=== PATIENT | female | born 1950 | race Hispanic/Latino ===

== ENCOUNTER 2021-09-18 13:59 | Inpatient (IN) | payer MEDICARE, MEDICAID ==
[2021-09-18] MEDS ORDERED: Vancomycin 1 GM/200 ML BAG ONE (14:18)
[2021-09-18] MEDS ORDERED: Cefepime 2 GM VIAL ONE (14:18)
[2021-09-18 14:30] LABS: Hemoglobin 15.9 g/dL (12.0-16.0); Mean Corpuscular HGB CONC 33.4 g/dL (32.0-36.0); Mean Corpuscular Hemoglobin 33.7 pg (27.0-31.0); Mean Platelet Volume 7.2 fL (7.4-10.4); Platelet Count 279 thou/uL (130-400); RBC Distribution Width 13.8 % (11.5-14.5); Red Blood Cell (RBC) Count 4.71 mill/uL (4.20-5.40); White Blood Cell (WBC) Count 11.8 thou/uL (4.8-10.8)
[2021-09-18 14:49] LABS: Band 23 % (5-11); Lymphocytes 11 % (21-51); MDiff Complete? YES; Monocytes 2 % (0-10); Neutrophil 63 % (42-75); Platelet Morphology Comment Appears Adequate; RBC Morphology Normal; Reactive Lymphocytes 1 % (0-10)
[2021-09-18 14:58] LABS: ALT (SGPT) 23 U/L (8-55); AST (SGOT) 28 U/L (5-34); Albumin 3.2 g/dL (3.4-4.8); Alkaline Phosphatase 165 U/L (40-110); Anion Gap 18 mmol/L (10-20); BUN (Urea Nitrogen) 24 mg/dL (9.8-20.1); Bilirubin, Total 0.5 mg/dL (0.2-1.2); Calc. Creatinine Clearance 0 mL/min (70-130); Calcium 9.5 mg/dL (7.8-10.44); Carbon Dioxide 34 mmol/L (23-31); Chloride 88 mmol/L (98-107); Globulin 4.1 g/dL (2.4-3.5); Glucose 269 mg/dL (83-110); Potassium 4.4 mmol/L (3.5-5.1); Protein, Total 7.3 g/dL (5.8-8.1); Sodium 136 mmol/L (136-145)
[2021-09-18 15:09] LABS: PTT 26.4 sec (22.9-36.1); Prothrombin Time 13.3 sec (12.0-14.7)
[2021-09-18 15:13] LABS: CKMB 3.1 ng/mL (0-6.6)
[2021-09-18] MEDS ORDERED: Ondansetron PF 4 MG/2 ML Vial IVP PRN (16:14)
[2021-09-18] MEDS ORDERED: Senokot S 8.6-50 MG TAB PO PRN (16:14)
[2021-09-18] MEDS ORDERED: Ondansetron ODT 4 MG TAB PO PRN (16:14)
[2021-09-18] MEDS ORDERED: Bisacodyl 5 MG TAB PO PRN (16:14)
[2021-09-18 17:19] LABS: Analyzer IN Cardio ER; Base Excess 6.8 mEq/L (-2.0 to +3.0); Chloride (VBG) 89 mmol/L (98-106); Hemoglobin (Hb) 16.7 g/dL (11.7-16.1); Potassium (VBG) 4.74 mmol/L (3.70-5.30); Sodium 132.6 mmol/L (133-146); pH (venous) 7.29 (7.32-7.43)
[2021-09-18 17:20] LABS: Actual Bicarbonate (HCO3v) 37 mEq/L (22-28)
[2021-09-18] MEDS ORDERED: HumaLOG 300 UNITS/3 ML VIAL SC PRN (17:28)
[2021-09-18] MEDS ORDERED: Dextrose 50% Abboject 50 ML SYRINGE SLOW IVP PRN (17:28)
[2021-09-18] MEDS ORDERED: Dextrose 5% in Water 1,000 ML IV PRN (17:28)
[2021-09-18] MEDS ORDERED: Furosemide 40 MG/4 ML VIAL SLOW IVP SCH (17:30)
[2021-09-18 19:56] LABS: Actual Bicarbonate (HCO3a) 39.5 mEq/L (22-28); CO2 Tension 82.9 mmHg (35.0-45.0); Carboxyhemoglobin (COHb) 1.9 gm% (0.0-3.0); Hemoglobin (Hb) 15.9 g/dL (12.0-16.0); O2 Tension (PaO2), arterial 62.5 mmHg (> 70.0)
[2021-09-18 19:57] LABS: Calcium, Ionized (arterial) 1.18 mmol/L (1.12-1.30); Potassium - ABG Lab 3.82 mmol/L (3.70-5.30); Puncture Site RBA
[2021-09-18 19:58] LABS: ALV-art Gradient 119.075 mmHg (0-20)
[2021-09-18 21:12] LABS: SARS-CoV-2 NAA Rapid Test Not Detected (NotDetected)
[2021-09-18] MEDS: Famotidine 20 MG TAB PO SCH (21:12)
[2021-09-18] MEDS ORDERED: Sodium Chloride 0.9% 1,000 ML IV SCH (21:30)
[2021-09-18] MEDS: methylPREDNISolone Sod Succ 40 MG VIAL IVP SCH ×2 (21:38→23:29)
[2021-09-18] MEDS: Famotidine/PF 20 mg/2ml Vial SLOW IVP SCH (21:38)
[2021-09-18] MEDS: HumaLOG 300 UNITS/3 ML VIAL SC PRN (22:02)
[2021-09-18 22:09] LABS: Actual Bicarbonate (HCO3a) 37.1 mEq/L (22-28); Base Excess (BEa) 8.4 mEq/L (-2.0 to +3.0); Calcium, Ionized (arterial) 1.16 mmol/L (1.12-1.30); Carboxyhemoglobin (COHb) 1.9 gm% (0.0-3.0); Hemoglobin (Hb) 15.2 g/dL (12.0-16.0); O2 Tension (PaO2), arterial 65.1 mmHg (> 70.0); Potassium - ABG Lab 3.62 mmol/L (3.70-5.30); pH, Arterial 7.35 (7.35-7.45)
[2021-09-18 22:12] LABS: CO2 Tension 69.2 mmHg (35.0-45.0)
[2021-09-19] MEDS ORDERED: cefTRIAXone\\ROCEPHIN 2 GM in Sodium Chloride 0.9% 100 ML IVPB SCH (02:00)
[2021-09-19] MEDS: methylPREDNISolone Sod Succ 40 MG VIAL IVP SCH ×2 (05:22→23:44)
[2021-09-19] MEDS: Furosemide 40 MG/4 ML VIAL SLOW IVP SCH ×2 (05:23→15:37)
[2021-09-19] MEDS: HumaLOG 300 UNITS/3 ML VIAL SC PRN ×4 (05:39→22:16)
[2021-09-19 05:47] LABS: Legionella Urinary Ag Negative (Negative); Strep pneumo Urine Ag NEGATIVE (NEGATIVE)
[2021-09-19 06:12] LABS: Actual Bicarbonate (HCO3v) 27 mEq/L (22-28); Base Excess 1.6 mEq/L (-2.0 to +3.0); Calcium, Ionized (venous) 0.97 mmol/L (1.16-1.32); Chloride (VBG) 93 mmol/L (98-106); Hemoglobin (Hb) 17.2 g/dL (11.7-16.1); Potassium (VBG) 4.85 mmol/L (3.70-5.30); Sodium 133.5 mmol/L (133-146)
[2021-09-19 06:22] LABS: #Lymphocytes 0.8 thou/uL (1.20-3.40); #Monocytes 0.7 thou/uL (0.11-0.59); #Neutrophils 11.9 thou/uL (1.40-6.50); %Basophils 0.1 % (0.0-1.0); %Eosinophils 0.2 % (0.0-10.0); %Monocytes 5.1 % (0.0-10.0); %Neutrophils 88.6 % (42.0-75.0); Mean Corpuscular HGB CONC 31.8 g/dL (32.0-36.0); Mean Corpuscular Hemoglobin 32.4 pg (27.0-31.0); Mean Platelet Volume 6.9 fL (7.4-10.4); Platelet Count 291 thou/uL (130-400); RBC Distribution Width 13.6 % (11.5-14.5); Red Blood Cell (RBC) Count 4.96 mill/uL (4.20-5.40); White Blood Cell (WBC) Count 13.5 thou/uL (4.8-10.8)
[2021-09-19 06:31] LABS: Hemoglobin A1c 7.9 % (4.0-6.0)
[2021-09-19 06:43] LABS: Anion Gap 19 mmol/L (10-20); BUN (Urea Nitrogen) 29 mg/dL (9.8-20.1); Calc. Creatinine Clearance 72 mL/min (70-130); Calcium 9.7 mg/dL (7.8-10.44); Carbon Dioxide 31 mmol/L (23-31); Cardiac Risk 3.6 (Less than 4.5); Chloride 91 mmol/L (98-107); Cholesterol 190 mg/dl (< 200 Desired); Glucose 388 mg/dL (83-110); HDL Cholesterol 53 mg/dL (>60 Neg Risk); LDL Cholesterol, Calculated 102 mg/dL; Potassium 4.2 mmol/L (3.5-5.1); Sodium 137 mmol/L (136-145); Triglycerides 175 mg/dL (Less than 150)
[2021-09-19] MEDS: Famotidine 20 MG TAB PO SCH ×2 (10:53→22:00)
[2021-09-19] MEDS: Famotidine/PF 20 mg/2ml Vial SLOW IVP SCH ×2 (10:57→22:03)
[2021-09-19] MEDS: Enoxaparin Sodium 40 MG/0.4 ML SYRINGE SC SCH (10:58)
[2021-09-19] MEDS: Azithromycin 500 MG in Sodium Chloride 0.9% 250 ML 250 ML IVPB SCH (10:58)
[2021-09-19] MEDS: Cefepime 2 GM in Sodium Chloride 0.9% 100 ML IVPB SCH ×2 (11:49→23:44)
[2021-09-19] MEDS: Acetaminophen 325 MG TAB PO PRN (15:37)
[2021-09-19] MEDS: Insulin Glargine 30 UNITS/0.3 ML VIAL SC SCH (17:22)
[2021-09-19] MEDS ORDERED: methylPREDNISolone Sod Succ 40 MG VIAL IVP SCH (19:00)
[2021-09-19] MEDS: Atorvastatin Calcium 10 MG TAB PO SCH (22:00)
[2021-09-20 04:09] LABS: Anion Gap 13 mmol/L (10-20); BUN (Urea Nitrogen) 28 mg/dL (9.8-20.1); Calc. Creatinine Clearance 107 mL/min (70-130); Calcium 9.2 mg/dL (7.8-10.44); Carbon Dioxide 36 mmol/L (23-31); Chloride 93 mmol/L (98-107); Glucose 160 mg/dL (83-110); Magnesium 1.9 mg/dL (1.6-2.6); Potassium 3.7 mmol/L (3.5-5.1); Sodium 138 mmol/L (136-145)
[2021-09-20 04:16] LABS: Band 59 % (5-11); Lymphocytes 3 % (21-51); MDiff Complete? YES; Macrocytosis SLIGHT = 6-15 cells (100X) (0-5/hpf); Mean Corpuscular HGB CONC 31.1 g/dL (32.0-36.0); Mean Corpuscular Hemoglobin 31.7 pg (27.0-31.0); Neutrophil 38 % (42-75); Platelet Count 258 thou/uL (130-400); Platelet Morphology Comment Appears Adequate; RBC Distribution Width 13.5 % (11.5-14.5); Red Blood Cell (RBC) Count 4.74 mill/uL (4.20-5.40); White Blood Cell (WBC) Count 12.8 thou/uL (4.8-10.8)
[2021-09-20] MEDS: methylPREDNISolone Sod Succ 40 MG VIAL IVP SCH ×4 (06:09→23:55)
[2021-09-20] MEDS: HumaLOG 300 UNITS/3 ML VIAL SC PRN ×4 (06:09→21:35)
[2021-09-20] MEDS: Furosemide 40 MG/4 ML VIAL SLOW IVP SCH ×2 (06:09→15:13)
[2021-09-20] MEDS: Acetaminophen 325 MG TAB PO PRN (06:20)
[2021-09-20] MEDS: Famotidine/PF 20 mg/2ml Vial SLOW IVP SCH (09:12)
[2021-09-20] MEDS: Aspirin 325 MG TAB PO SCH (09:12)
[2021-09-20] MEDS: Famotidine 20 MG TAB PO SCH ×2 (09:12→21:36)
[2021-09-20] MEDS: Enoxaparin Sodium 40 MG/0.4 ML SYRINGE SC SCH (09:13)
[2021-09-20] MEDS: Insulin Glargine 30 UNITS/0.3 ML VIAL SC SCH ×2 (09:13→21:34)
[2021-09-20] MEDS: Azithromycin 500 MG in Sodium Chloride 0.9% 250 ML 250 ML IVPB SCH (09:43)
[2021-09-20] MEDS: Cefepime 2 GM in Sodium Chloride 0.9% 100 ML IVPB SCH ×2 (11:06→23:55)
[2021-09-20] MEDS: Atorvastatin Calcium 10 MG TAB PO SCH (21:36)
[2021-09-21 04:00] LABS: #Lymphocytes 0.6 thou/uL (1.20-3.40); #Monocytes 0.8 thou/uL (0.11-0.59); #Neutrophils 11.8 thou/uL (1.40-6.50); %Basophils 0.2 % (0.0-1.0); %Eosinophils 0.2 % (0.0-10.0); %Lymphocytes 4.8 % (21.0-51.0); %Monocytes 5.8 % (0.0-10.0); Hemoglobin 16.3 g/dL (12.0-16.0); Mean Corpuscular HGB CONC 30.6 g/dL (32.0-36.0); Mean Corpuscular Hemoglobin 31.7 pg (27.0-31.0); Mean Platelet Volume 7.5 fL (7.4-10.4); Platelet Count 248 thou/uL (130-400); RBC Distribution Width 13.7 % (11.5-14.5); Red Blood Cell (RBC) Count 5.13 mill/uL (4.20-5.40); White Blood Cell (WBC) Count 13.2 thou/uL (4.8-10.8)
[2021-09-21 04:16] LABS: Anion Gap 17 mmol/L (10-20); BUN (Urea Nitrogen) 27 mg/dL (9.8-20.1); Calc. Creatinine Clearance 116 mL/min (70-130); Calcium 9.4 mg/dL (7.8-10.44); Carbon Dioxide 31 mmol/L (23-31); Chloride 95 mmol/L (98-107); Glucose 168 mg/dL (83-110); Magnesium 2.1 mg/dL (1.6-2.6); Potassium 3.6 mmol/L (3.5-5.1); Sodium 139 mmol/L (136-145)
[2021-09-21] MEDS: methylPREDNISolone Sod Succ 40 MG VIAL IVP SCH ×3 (05:55→17:34)
[2021-09-21] MEDS: Aspirin 325 MG TAB PO SCH (08:44)
[2021-09-21] MEDS: Enoxaparin Sodium 40 MG/0.4 ML SYRINGE SC SCH (08:44)
[2021-09-21] MEDS: Famotidine 20 MG TAB PO SCH ×2 (08:45→20:38)
[2021-09-21] MEDS: Insulin Glargine 30 UNITS/0.3 ML VIAL SC SCH ×2 (08:45→20:39)
[2021-09-21] MEDS: Furosemide 20 MG TAB PO SCH ×2 (08:45→16:04)
[2021-09-21] MEDS: Azithromycin 500 MG in Sodium Chloride 0.9% 250 ML 250 ML IVPB SCH (10:48)
[2021-09-21] MEDS: HumaLOG 300 UNITS/3 ML VIAL SC PRN ×2 (12:45→17:34)
[2021-09-21] MEDS: Cefepime 2 GM in Sodium Chloride 0.9% 100 ML IVPB SCH (12:45)
[2021-09-21] MEDS ORDERED: Iopamidol 370 76% 100 ML VIAL ONE (13:03)
[2021-09-21] MEDS: Atorvastatin Calcium 10 MG TAB PO SCH (20:38)
[2021-09-21] MEDS: Nicotine 14 MG PATCH TOP SCH (20:38)
[2021-09-22] MEDS: methylPREDNISolone Sod Succ 40 MG VIAL IVP SCH ×3 (01:39→13:11)
[2021-09-22] MEDS: Cefepime 2 GM in Sodium Chloride 0.9% 100 ML IVPB SCH ×2 (01:39→13:11)
[2021-09-22 04:10] LABS: #Lymphocytes 0.7 thou/uL (1.20-3.40); #Monocytes 0.7 thou/uL (0.11-0.59); #Neutrophils 9.1 thou/uL (1.40-6.50); %Basophils 0.2 % (0.0-1.0); %Eosinophils 0.2 % (0.0-10.0); %Lymphocytes 6.9 % (21.0-51.0); %Monocytes 6.3 % (0.0-10.0); %Neutrophils 86.3 % (42.0-75.0); Hemoglobin 16.4 g/dL (12.0-16.0); Mean Corpuscular HGB CONC 32.5 g/dL (32.0-36.0); Mean Corpuscular Hemoglobin 33.1 pg (27.0-31.0); Platelet Count 276 thou/uL (130-400); RBC Distribution Width 13.6 % (11.5-14.5); Red Blood Cell (RBC) Count 4.96 mill/uL (4.20-5.40); White Blood Cell (WBC) Count 10.5 thou/uL (4.8-10.8)
[2021-09-22 04:29] LABS: Anion Gap 18 mmol/L (10-20); BUN (Urea Nitrogen) 32 mg/dL (9.8-20.1); Calc. Creatinine Clearance 115 mL/min (70-130); Calcium 9.3 mg/dL (7.8-10.44); Carbon Dioxide 32 mmol/L (23-31); Chloride 94 mmol/L (98-107); Glucose 182 mg/dL (83-110); Magnesium 2.1 mg/dL (1.6-2.6); Potassium 3.7 mmol/L (3.5-5.1); Sodium 140 mmol/L (136-145)
[2021-09-22] MEDS: HumaLOG 300 UNITS/3 ML VIAL SC PRN ×3 (06:20→17:51)
[2021-09-22] MEDS: Aspirin 325 MG TAB PO SCH (08:45)
[2021-09-22] MEDS: Azithromycin 500 MG in Sodium Chloride 0.9% 250 ML 250 ML IVPB SCH (08:45)
[2021-09-22] MEDS: Enoxaparin Sodium 40 MG/0.4 ML SYRINGE SC SCH (08:46)
[2021-09-22] MEDS: Furosemide 20 MG TAB PO SCH ×2 (08:46→13:12)
[2021-09-22] MEDS: Famotidine 20 MG TAB PO SCH ×2 (08:46→21:13)
[2021-09-22] MEDS: Insulin Glargine 30 UNITS/0.3 ML VIAL SC SCH ×2 (08:46→21:13)
[2021-09-22] MEDS: Nicotine 14 MG PATCH TOP SCH (21:12)
[2021-09-22] MEDS: Atorvastatin Calcium 10 MG TAB PO SCH (21:13)
[2021-09-23 03:38] LABS: #Eosinphils 0.2 thou/uL (0.0-0.7); #Lymphocytes 1.1 thou/uL (1.20-3.40); #Neutrophils 7.8 thou/uL (1.40-6.50); %Basophils 0.1 % (0.0-1.0); %Eosinophils 1.5 % (0.0-10.0); %Lymphocytes 10.9 % (21.0-51.0); %Neutrophils 77.6 % (42.0-75.0); Hemoglobin 16.9 g/dL (12.0-16.0); Mean Corpuscular HGB CONC 31.9 g/dL (32.0-36.0); Mean Corpuscular Hemoglobin 32.7 pg (27.0-31.0); Mean Platelet Volume 6.6 fL (7.4-10.4); Platelet Count 324 thou/uL (130-400); RBC Distribution Width 13.6 % (11.5-14.5); Red Blood Cell (RBC) Count 5.19 mill/uL (4.20-5.40); White Blood Cell (WBC) Count 10.1 thou/uL (4.8-10.8)
[2021-09-23 04:03] LABS: BUN (Urea Nitrogen) 29 mg/dL (9.8-20.1); Calc. Creatinine Clearance 129 mL/min (70-130); Calcium 9.1 mg/dL (7.8-10.44); Glucose 74 mg/dL (83-110); Magnesium 2.1 mg/dL (1.6-2.6)
[2021-09-23 04:13] LABS: Anion Gap 11 mmol/L (10-20); Chloride 96 mmol/L (98-107); Potassium 3.2 mmol/L (3.5-5.1); Sodium 145 mmol/L (136-145)
[2021-09-23 04:23] LABS: Carbon Dioxide 41 mmol/L (23-31)
[2021-09-23] MEDS: Azithromycin 500 MG in Sodium Chloride 0.9% 250 ML 250 ML IVPB SCH (09:30)
[2021-09-23] MEDS: predniSONE 20 MG TAB PO SCH (09:30)
[2021-09-23] MEDS: Enoxaparin Sodium 40 MG/0.4 ML SYRINGE SC SCH (09:30)
[2021-09-23] MEDS: Famotidine 20 MG TAB PO SCH ×2 (09:30→20:42)
[2021-09-23] MEDS: Aspirin 325 MG TAB PO SCH (09:30)
[2021-09-23] MEDS: Insulin Glargine 30 UNITS/0.3 ML VIAL SC SCH (09:33)
[2021-09-23] MEDS: Cefepime 2 GM in Sodium Chloride 0.9% 100 ML IVPB SCH ×2 (11:39)
[2021-09-23] MEDS ORDERED: NIFEdipine XL 30 MG TAB PO SCH (15:20)
[2021-09-23] MEDS ORDERED: Carvedilol 6.25 MG TAB PO SCH (17:00)
[2021-09-23] MEDS: HumaLOG 300 UNITS/3 ML VIAL SC PRN ×2 (17:16→20:46)
[2021-09-23] MEDS: Atorvastatin Calcium 10 MG TAB PO SCH (20:42)
[2021-09-23] MEDS: Nicotine 14 MG PATCH TOP SCH (20:42)
[2021-09-23] MEDS ORDERED: Insulin Glargine 30 UNITS/0.3 ML VIAL SC SCH (21:00)
[2021-09-24] MEDS: Cefepime 2 GM in Sodium Chloride 0.9% 100 ML IVPB SCH ×3 (00:06→23:27)
[2021-09-24 01:49] LABS: Anion Gap 14 mmol/L (10-20); BUN (Urea Nitrogen) 25 mg/dL (9.8-20.1); Calc. Creatinine Clearance 127 mL/min (70-130); Calcium 9.2 mg/dL (7.8-10.44); Carbon Dioxide 36 mmol/L (23-31); Chloride 96 mmol/L (98-107); Magnesium 1.9 mg/dL (1.6-2.6); Potassium 3.3 mmol/L (3.5-5.1); Sodium 143 mmol/L (136-145)
[2021-09-24 01:51] LABS: Glucose 29 mg/dL (83-110)
[2021-09-24] MEDS ORDERED: Electrolyte Replacement Protocol 1 EACH FS PRN (02:10)
[2021-09-24] MEDS ORDERED: Magnesium 2 GM/50 ML(in water) 2 GM in Premix Bag 1 BAG IVPB SCH (02:15)
[2021-09-24] MEDS ORDERED: Potassium Chloride 20 MEQ TAB PO SCH (02:15)
[2021-09-24 03:58] LABS: #Eosinphils 0.6 thou/uL (0.0-0.7); #Lymphocytes 1.2 thou/uL (1.20-3.40); #Monocytes 1.2 thou/uL (0.11-0.59); #Neutrophils 5.6 thou/uL (1.40-6.50); %Basophils 0.2 % (0.0-1.0); %Eosinophils 6.9 % (0.0-10.0); %Lymphocytes 13.7 % (21.0-51.0); %Monocytes 13.6 % (0.0-10.0); %Neutrophils 65.5 % (42.0-75.0); Hemoglobin 16.1 g/dL (12.0-16.0); Mean Corpuscular Hemoglobin 32.9 pg (27.0-31.0); Mean Platelet Volume 6.5 fL (7.4-10.4); Platelet Count 281 thou/uL (130-400); RBC Distribution Width 13.7 % (11.5-14.5); White Blood Cell (WBC) Count 8.5 thou/uL (4.8-10.8)
[2021-09-24 04:22] LABS: Anion Gap 14 mmol/L (10-20); BUN (Urea Nitrogen) 25 mg/dL (9.8-20.1); Calc. Creatinine Clearance 133 mL/min (70-130); Calcium 8.8 mg/dL (7.8-10.44); Carbon Dioxide 34 mmol/L (23-31); Chloride 95 mmol/L (98-107); Glucose 109 mg/dL (83-110); Magnesium 2.2 mg/dL (1.6-2.6); Potassium 3.1 mmol/L (3.5-5.1); Sodium 140 mmol/L (136-145)
[2021-09-24] MEDS: Aspirin 325 MG TAB PO SCH (09:00)
[2021-09-24] MEDS: Enoxaparin Sodium 40 MG/0.4 ML SYRINGE SC SCH (09:00)
[2021-09-24] MEDS: predniSONE 20 MG TAB PO SCH (09:00)
[2021-09-24] MEDS: Famotidine 20 MG TAB PO SCH ×2 (09:00→20:33)
[2021-09-24] MEDS: Losartan 25 MG TAB PO SCH (09:01)
[2021-09-24] MEDS: NIFEdipine XL 30 MG TAB PO SCH (09:01)
[2021-09-24] MEDS ORDERED: HumaLOG 300 UNITS/3 ML VIAL SC PRN (14:42)
[2021-09-24] MEDS: HumaLOG 300 UNITS/3 ML VIAL SC PRN (17:13)
[2021-09-24] MEDS ORDERED: Nicotine 14 MG PATCH TD PRN (17:28)
[2021-09-24] MEDS: Atorvastatin Calcium 10 MG TAB PO SCH (20:33)
[2021-09-25 03:41] LABS: #Eosinphils 0.6 thou/uL (0.0-0.7); #Lymphocytes 1.9 thou/uL (1.20-3.40); #Neutrophils 6.3 thou/uL (1.40-6.50); %Basophils 0.3 % (0.0-1.0); %Eosinophils 6.1 % (0.0-10.0); %Lymphocytes 19.6 % (21.0-51.0); %Monocytes 10.5 % (0.0-10.0); %Neutrophils 63.5 % (42.0-75.0); Hemoglobin 16.5 g/dL (12.0-16.0); Mean Corpuscular HGB CONC 31.8 g/dL (32.0-36.0); Mean Corpuscular Hemoglobin 32.7 pg (27.0-31.0); Mean Platelet Volume 6.4 fL (7.4-10.4); Platelet Count 325 thou/uL (130-400); RBC Distribution Width 13.6 % (11.5-14.5); Red Blood Cell (RBC) Count 5.03 mill/uL (4.20-5.40); White Blood Cell (WBC) Count 9.8 thou/uL (4.8-10.8)
[2021-09-25 03:47] LABS: Anion Gap 14 mmol/L (10-20); BUN (Urea Nitrogen) 20 mg/dL (9.8-20.1); Calc. Creatinine Clearance 121 mL/min (70-130); Calcium 8.7 mg/dL (7.8-10.44); Carbon Dioxide 37 mmol/L (23-31); Chloride 96 mmol/L (98-107); Glucose 112 mg/dL (83-110); Potassium 3.7 mmol/L (3.5-5.1); Sodium 143 mmol/L (136-145)
[2021-09-25] MEDS ORDERED: Magnesium 2 GM/50 ML(in water) 2 GM in Premix Bag 1 BAG IVPB SCH (04:45)
[2021-09-25] MEDS ORDERED: predniSONE 20 MG TAB PO SCH (07:46)
[2021-09-25] MEDS: Enoxaparin Sodium 40 MG/0.4 ML SYRINGE SC SCH (09:07)
[2021-09-25] MEDS: NIFEdipine XL 30 MG TAB PO SCH (09:07)
[2021-09-25] MEDS: Losartan 25 MG TAB PO SCH (09:07)
[2021-09-25] MEDS: predniSONE 5 MG TAB PO SCH (09:07)
[2021-09-25] MEDS: Aspirin 325 MG TAB PO SCH (09:07)
[2021-09-25] MEDS: Famotidine 20 MG TAB PO SCH ×2 (09:07→21:07)
[2021-09-25] MEDS: Cefepime 2 GM in Sodium Chloride 0.9% 100 ML IVPB SCH (11:50)
[2021-09-25] MEDS: HumaLOG 300 UNITS/3 ML VIAL SC PRN (16:59)
[2021-09-25] MEDS: Atorvastatin Calcium 10 MG TAB PO SCH (21:07)
[2021-09-26 00:24] LABS: SARS-CoV-2 PCR by NAA Not Detected (NotDetected)
[2021-09-26] MEDS: Cefepime 2 GM in Sodium Chloride 0.9% 100 ML IVPB SCH (01:27)
[2021-09-26 04:08] LABS: #Basophils 0.1 thou/uL (0.0-0.2); #Eosinphils 0.6 thou/uL (0.0-0.7); #Lymphocytes 2.2 thou/uL (1.20-3.40); #Monocytes 0.9 thou/uL (0.11-0.59); #Neutrophils 5.8 thou/uL (1.40-6.50); %Basophils 0.5 % (0.0-1.0); %Eosinophils 6.6 % (0.0-10.0); %Lymphocytes 22.6 % (21.0-51.0); %Monocytes 9.3 % (0.0-10.0); Hemoglobin 15.6 g/dL (12.0-16.0); Mean Corpuscular HGB CONC 32.1 g/dL (32.0-36.0); Mean Corpuscular Hemoglobin 32.6 pg (27.0-31.0); Mean Platelet Volume 7.2 fL (7.4-10.4); Platelet Count 290 thou/uL (130-400); RBC Distribution Width 13.7 % (11.5-14.5); Red Blood Cell (RBC) Count 4.78 mill/uL (4.20-5.40); White Blood Cell (WBC) Count 9.6 thou/uL (4.8-10.8)
[2021-09-26 04:49] LABS: Anion Gap 13 mmol/L (10-20); BUN (Urea Nitrogen) 18 mg/dL (9.8-20.1); Calc. Creatinine Clearance 122 mL/min (70-130); Calcium 8.7 mg/dL (7.8-10.44); Carbon Dioxide 36 mmol/L (23-31); Chloride 99 mmol/L (98-107); Glucose 161 mg/dL (83-110); Potassium 4.7 mmol/L (3.5-5.1); Sodium 143 mmol/L (136-145)
[2021-09-26] MEDS ORDERED: Magnesium 2 GM/50 ML(in water) 2 GM in Premix Bag 1 BAG IVPB SCH (05:15)
[2021-09-26] MEDS: predniSONE 5 MG TAB PO SCH ×2 (10:33→10:35)
[2021-09-26] MEDS: Aspirin 325 MG TAB PO SCH (10:33)
[2021-09-26] MEDS: Enoxaparin Sodium 40 MG/0.4 ML SYRINGE SC SCH (10:33)
[2021-09-26] MEDS: NIFEdipine XL 30 MG TAB PO SCH (10:34)
[2021-09-26] MEDS: Losartan 25 MG TAB PO SCH (10:34)
[2021-09-26] MEDS: Famotidine 20 MG TAB PO SCH ×2 (10:34→20:26)
[2021-09-26] MEDS: HumaLOG 300 UNITS/3 ML VIAL SC PRN (17:59)
[2021-09-26] MEDS ORDERED: HumaLOG 300 UNITS/3 ML VIAL SC PRN (19:00)
[2021-09-26] MEDS: Atorvastatin Calcium 10 MG TAB PO SCH (20:26)
[2021-09-27 04:36] LABS: Chloride 101 mmol/L (98-107); Potassium 4.1 mmol/L (3.5-5.1); Sodium 140 mmol/L (136-145)
[2021-09-27 04:37] LABS: Calcium 8.8 mg/dL (7.8-10.44); Glucose 118 mg/dL (83-110)
[2021-09-27 04:39] LABS: Carbon Dioxide 27 mmol/L (23-31)
[2021-09-27 04:41] LABS: BUN (Urea Nitrogen) 15 mg/dL (9.8-20.1); Calc. Creatinine Clearance 133 mL/min (70-130)
[2021-09-27 05:44] LABS: Anion Gap 16 mmol/L (10-20)
[2021-09-27 06:01] VITALS: BMI 37.3
[2021-09-27 07:33] VITALS: TEMP 97.3
[2021-09-27] MEDS ORDERED: Losartan 25 MG TAB PO SCH (09:00)
[2021-09-27] MEDS ORDERED: predniSONE 5 MG TAB PO SCH (09:30)
[2021-09-27] MEDS: NIFEdipine XL 30 MG TAB PO SCH (09:43)
[2021-09-27] MEDS: Famotidine 20 MG TAB PO SCH (09:43)
[2021-09-27] MEDS: Aspirin 325 MG TAB PO SCH (09:44)
[2021-09-27] MEDS: Enoxaparin Sodium 40 MG/0.4 ML SYRINGE SC SCH (09:44)
[2021-09-27] MEDS: predniSONE 5 MG TAB PO SCH (12:07)
[2021-09-27 15:58] VITALS: BP 139/84
[2021-09-28] MEDS ORDERED: predniSONE 5 MG TAB PO SCH (08:00)
== END 2021-09-27 15:46 | disposition home or self-care (01) | DRG 871 ==
LOC: SUATTDRO 13:59 → ERS 13:59 → IMCU/EMU 17:27
PROVIDERS: ADMIT Internal Medicine; ATTEND Internal Medicine
PROC: 5A09357 Assistance with Respiratory Ventilation, Less than 24 Consecutive Hours, Continuous Positive Airway Pressure (ICD-10-PCS; principal; 2021-09-18)
PROC: 3E03329 Introduction of Other Anti-infective into Peripheral Vein, Percutaneous Approach (ICD-10-PCS; 2021-09-18)
DX: A41.9 Sepsis, unspecified organism (principal); J69.0 Pneumonitis due to inhalation of food and vomit; I50.33 Acute on chronic diastolic (congestive) heart failure; J18.9 Pneumonia, unspecified organism; J96.21 Acute and chronic respiratory failure with hypoxia; J96.22 Acute and chronic respiratory failure with hypercapnia; G92.8 Other toxic encephalopathy; J44.1 Chronic obstructive pulmonary disease with (acute) exacerbation; E66.2 Morbid (severe) obesity with alveolar hypoventilation; J44.0 Chronic obstructive pulmonary disease with (acute) lower respiratory infection; E87.2 Acidosis; Z20.822 Contact with and (suspected) exposure to COVID-19; R13.10 Dysphagia, unspecified; F17.210 Nicotine dependence, cigarettes, uncomplicated; F41.9 Anxiety disorder, unspecified; I11.0 Hypertensive heart disease with heart failure; F32.A Depression, unspecified; R94.31 Abnormal electrocardiogram [ECG] [EKG]; E83.42 Hypomagnesemia; E11.649 Type 2 diabetes mellitus with hypoglycemia without coma; R00.1 Bradycardia, unspecified; Z68.37 Body mass index [BMI] 37.0-37.9, adult; Z28.21 Immunization not carried out because of patient refusal; Z99.81 Dependence on supplemental oxygen; Z91.19 Patient's noncompliance with other medical treatment and regimen; Z79.899 Other long term (current) drug therapy; Z79.84 Long term (current) use of oral hypoglycemic drugs; Z79.82 Long term (current) use of aspirin
CPT/HCPCS: 36415; 36416; 36600; 71045; 71260; 74230; 76770; 80048; 80053; 80061; 82553; 82805; 83036; 83605; 83735; 83880; 84145; 84443; 84484; 85025; 85379; 85610; 85730; 87040; 87070; 87081; 87086; 87205; 87449; 87633; 87899; 93005; 93010; 93306; 94640; 94660; 94760; 96365; 96366; 96367; 97139; J0456; J0692; J0696; J1650; J1815; J1940; J2920; J3370; J3475; J3490; J7050; J7512; J7620; Q9967; S0028; U0003; U0005

== ENCOUNTER 2022-04-23 09:32 | Outpatient (CLI) | payer OTHER | END 2022-04-23 09:33 | disposition home or self-care (01) | LOC: RAD 09:32 | PROVIDERS: ATTEND Internal Medicine | DX: R06.00 Dyspnea, unspecified (principal); I51.7 Cardiomegaly; I77.1 Stricture of artery; J98.4 Other disorders of lung; R91.8 Other nonspecific abnormal finding of lung field | CPT/HCPCS: 71046 ==